=== PATIENT | female | born 1980 | race Caucasian/White ===

== ENCOUNTER 2017-11-11 01:00 | Day surgery (SDC) | payer BC, OTHER ==
[~2017-11-11] VITALS: Ht 160 cm; Wt 106.3 kg
[2017-11-11] MEDS ORDERED: KETOROLAC 30 MG/ML VIAL IVP ONE (01:30)
[2017-11-11] MEDS ORDERED: ONDANSETRON 4 MG/2 ML (SDV) Z0FRAN IVP ONE ×2 (01:30→03:00)
--- NOTE | 2017-11-11 01:30 | ED Abdominal Pain ---
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 emesis x 2 Sepsis Screen: No Definite Risk Source of Information: Patient Exam Limitations: No Limitations History of Present Illness Date Seen by Provider: Nov 11, 2017 Time Seen by Provider: 01:16 Initial Comments Patient presents to ER by private conveyance with a chief complaint of suprapubic abdominal pain radiating to the right lower quadrant abdomen. She's never had a pain like this before this started about 2 hours ago. She was out with some friends at a [place] [employer] and had 4 alcoholic drinks tonight. She does not smoke or use recreational drugs. She had her last menstrual period 2 weeks ago. She describes the pain is really bad cramps. Her last bowel movement was one hour ago normal formed. She has no difficulty urinating. No discharge. She's had no surgeries on her abdomen nor has she had any trauma. She takes Vyvanse for ADHD, tumeric for chronic pain and fibromyalgia, Wellbutrin. She says she has vomited tonight and still has nausea. Allergies and Home Medications Allergies Coded Allergies: Penicillins (Verified Allergy, Unknown, 11/11/17) Patient Home Medication List Home Medication List Reviewed: Yes Review of Systems Constitutional: No chills, No diaphoresis EENTM: No Blurred Vision, No Double Vision Respiratory: Denies Cough, Denies Shortness of Air Cardiovascular: Denies Chest Pain, Denies Palpitations Gastrointestinal: See HPI, Abdominal Pain; Denies Constipated, Denies Diarrhea ; Nausea, Vomiting Genitourinary: Denies Burning, Denies Discharge Musculoskeletal: No back pain, No joint pain Skin: No pruritus, No rash Psychiatric/Neurological: Denies Headache, Denies Numbness, Denies Paresthesia Past Pxqfrql-Sovbjm-Bzxagc Hx Patient Social History Alcohol Use: Occasionally Uses Number of Drinks Today: 4 Alcohol Beverage of Choice: Beer Recreational Drug Use: No Smoking Status: Never a Smoker Recent Foreign Travel: No Contact w/Someone Who Travel: No Recent Infectious Disease Expo: No Past Medical History Surgeries: No Respiratory: No Cardiac: No Neurological: No Genitourinary: No Gastrointestinal: No Musculoskeletal: Yes Fibromyalgia Endocrine: No HEENT: No Cancer: No Psychosocial: Yes ADD/ADHD, Depression Integumentary: No Physical Exam Vital Signs Vital Signs - First Documented 11/11/17 01:11 Temp 96.1 Pulse 78 Resp 26 B/P (MAP) 110/51 (70) Pulse Ox 98 Capillary Refill : Less Than 3 Seconds General Appearance: WD/WN, moderate distress HEENT: PERRL/EOMI, normal ENT inspection, TMs normal, pharynx normal Neck: non-tender, supple, normal inspection Respiratory: chest non-tender, lungs clear, normal breath sounds, no respiratory distress, no accessory muscle use Cardiovascular: normal peripheral pulses, regular rate, rhythm, no edema Peripheral Pulses: 2+ Radial Pulses (R), 2+ Radial Pulses (L) Gastrointestinal: normal bowel sounds, soft; No guarding, No rebound; tenderness (suprapubic and right lower quadrant around McBurney's point. There is no Rovsing's or iliopsoas signs), other (obese) Extremities: normal range of motion, normal capillary refill Neurologic/Psychiatric: alert, oriented x 3, other (tearful, anxious) Skin: normal color, warm/dry Progress/Results/Core Measures Lab Results Laboratory Tests Test 11/11/17 01:15 11/11/17 01:45 Range/Units White Blood Count 18.2 H 4.3-11.0 10^3/uL Red Blood Count 4.24 L 4.35-5.85 10^6/uL Hemoglobin 13.2 11.5-16.0 G/DL Hematocrit 39 35-52 % Mean Corpuscular Volume 91 80-99 FL Mean Corpuscular Hemoglobin 31 25-34 PG Mean Corpuscular Hemoglobin Concent 34 32-36 G/DL Red Cell Distribution Width 11.9 10.0-14.5 % Platelet Count 199 130-400 10^3/uL Mean Platelet Volume 11.2 H 7.4-10.4 FL Neutrophils (%) (Auto) 83 H 42-75 % Lymphocytes (%) (Auto) 8 L 12-44 % Monocytes (%) (Auto) 9 0-12 % Eosinophils (%) (Auto) 1 0-10 % Basophils (%) (Auto) 0 0-10 % Neutrophils # (Auto) 15.1 H 1.8-7.8 X 10^3 Lymphocytes # (Auto) 1.4 1.0-4.0 X 10^3 Monocytes # (Auto) 1.6 H 0.0-1.0 X 10^3 Eosinophils # (Auto) 0.1 0.0-0.3 10^3/uL Basophils # (Auto) 0.0 0.0-0.1 10^3/uL Neutrophils % (Manual) 76 % Lymphocytes % (Manual) 8 % Monocytes % (Manual) 7 % Eosinophils % (Manual) 0 % Basophils % (Manual) 0 % Band Neutrophils 7 % Reactive Lymphocytes 2 % Blood Morphology Comment NORMAL Sodium Level 138 135-145 MMOL/L Potassium Level 3.8 3.6-5.0 MMOL/L Chloride Level 104 98-107 MMOL/L Carbon Dioxide Level 20 L 21-32 MMOL/L Anion Gap 14 5-14 MMOL/L Blood Urea Nitrogen 15 7-18 MG/DL Creatinine 0.76 0.60-1.30 MG/DL Estimat Glomerular Filtration Rate > 60 BUN/Creatinine Ratio 20 Glucose Level 118 H 70-105 MG/DL Calcium Level 9.6 8.5-10.1 MG/DL Magnesium Level 2.3 1.8-2.4 MG/DL Total Bilirubin 0.3 0.1-1.0 MG/DL Aspartate Amino Transf (AST/SGOT) 15 5-34 U/L Alanine Aminotransferase (ALT/SGPT) 24 0-55 U/L Alkaline Phosphatase 59 40-136 U/L C-Reactive Protein High Sensitivity 0.62 H 0.00-0.50 MG/DL Total Protein 7.0 6.4-8.2 GM/DL Albumin 4.3 3.2-4.5 GM/DL Serum Alcohol < 10 <10 MG/DL Urine Color YELLOW Urine Clarity CLEAR Urine pH 6 5-9 Urine Specific [place] 1.025 H 1.016-1.022 Urine Protein 1+ H NEGATIVE Urine Glucose (UA) NEGATIVE NEGATIVE Urine Ketones 4+ H NEGATIVE Urine Nitrite NEGATIVE NEGATIVE Urine Bilirubin NEGATIVE NEGATIVE Urine Urobilinogen NORMAL NORMAL MG/DL Urine Leukocyte Esterase 2+ H NEGATIVE Urine RBC (Auto) 3+ H NEGATIVE Urine RBC RARE /HPF Urine WBC 2-5 /HPF Urine Squamous Epithelial Cells 2-5 /HPF Urine Crystals NONE /LPF Urine Bacteria FEW H /HPF Urine Casts NONE /LPF Urine Mucus SMALL H /LPF Urine Culture Indicated YES Urine Test NEGATIVE NEGATIVE Urine Opiates Screen NEGATIVE NEGATIVE Urine Oxycodone Screen NEGATIVE NEGATIVE Urine Methadone Screen NEGATIVE NEGATIVE Urine Propoxyphene Screen NEGATIVE NEGATIVE Urine Barbiturates Screen NEGATIVE NEGATIVE Ur Tricyclic Antidepressants Screen NEGATIVE NEGATIVE Urine Phencyclidine Screen NEGATIVE NEGATIVE Urine Amphetamines Screen POSITIVE H NEGATIVE Urine Methamphetamines Screen NEGATIVE NEGATIVE Urine Benzodiazepines Screen NEGATIVE NEGATIVE Urine Cocaine Screen NEGATIVE NEGATIVE Urine Cannabinoids Screen NEGATIVE NEGATIVE My Orders Orders - [facility] Alcohol (11/11/17 01:22) Cbc With Automated Diff (11/11/17 01:22) Comprehensive Metabolic Panel (11/11/17 01:22) Hs C Reactive Protein (11/11/17 01:22) Drug Screen Stat (Urine) (11/11/17 01:22) Hcg,Qualitative Urine (11/11/17 01:22) Magnesium (11/11/17 01:22) Ua Culture If Indicated (11/11/17 01:22) Saline Lock/Iv-Start (11/11/17 01:22) Ketorolac Injection (Toradol Injection) (11/11/17 01:30) Ondansetron Injection (Zofran Injectio (11/11/17 01:30) Ct Abd/Pelv W (Appendicitis) (11/11/17 01:31) Manual Differential (11/11/17 01:15) Iohexol Injection (Omnipaque 350 Mg/Ml 1 (11/11/17 02:00) Ns (Ivpb) (Sodium Chloride 0.9%) (11/11/17 02:00) Urine Culture (11/11/17 01:45) Medications Given in ED Current Medications Medications Dose Ordered Sig/Deep Route Start Time Stop Time Status Last Admin Dose Admin Iohexol 100 ml ONCE ONCE IV 11/11/17 02:00 11/11/17 02:01 DC 11/11/17 01:58 100 ML Ketorolac Tromethamine 15 mg ONCE ONCE IVP 11/11/17 01:30 11/11/17 01:31 DC 11/11/17 01:36 15 MG Ondansetron HCl 4 mg ONCE ONCE IVP 11/11/17 01:30 11/11/17 01:31 DC 11/11/17 01:35 4 MG Sodium Chloride 250 ml ONCE ONCE IV 11/11/17 02:00 11/11/17 02:01 DC 11/11/17 01:59 80 ML Vital Signs/I&O 11/11/17 01:11 Temp 96.1 Pulse 78 Resp 26 B/P (MAP) 110/51 (70) Pulse Ox 98 Blood Pressure Mean: 70 Progress Note : Time: 01:29 Progress Note Pain and nausea medicine. We'll obtain urine and blood. Possibilities include mittelschmerz, ovarian or tubal pain, appendix. Her pain does not really seem to be lateralizing but more midline. She is just as tender though over McBurney' s point. We'll plan on doing a CT abdomen pelvis with contrast given her distress. Diagonstic Imaging: CT (with contrast) Plain Films/CT/US/NM/MRI: abdomen, pelvis Comments Appendix is enlarged 9 mm with surrounding inflammatory change. Findings consistent with acute appendicitis. No free air. No fluid collections. Reviewed: Reviewed by Me Departure Communication (Admissions) Time/Spoke to Admitting Phy: 02:46 hollie: General surgery. Discussed case lab imaging's and he recommends putting her in an observation stay and he would take her to the operating room this morning. Impression Primary Impression: Appendicitis Qualified Codes: K35.80 - Unspecified acute appendicitis Disposition: ADMITTED INPATIENT Condition: Stable Admissions Decision to Admit Reason: Admit from ER (General) Decision to Admit/Date: Nov 11, 2017 Time/Decision to Admit Time: 02:47 Copy Copies To 1: STAN VIVEROS MD, TITUS J Nov 11, 2017 01:30
[2017-11-11 01:31] LABS: BASOPHILS % (AUTO) 0 % (0-10); EOSINOPHILS # (AUTO) 0.1 10^3/uL (0.0-0.3); EOSINOPHILS % (AUTO) 1 % (0-10); HEMATOCRIT 39 % (35-52); HEMOGLOBIN 13.2 G/DL (11.5-16.0); LYMPHOCYTES # (AUTO) 1.4 X 10^3 (1.0-4.0); LYMPHOCYTES % (AUTO) 8 % (12-44); MEAN CORPUSCULAR HEMOGLOBIN 31 PG (25-34); MEAN CORPUSCULAR HGB CONC 34 G/DL (32-36); MEAN CORPUSCULAR VOLUME 91 FL (80-99); MEAN PLATELET VOLUME 11.2 FL (7.4-10.4); MONOCYTES # (AUTO) 1.6 X 10^3 (0.0-1.0); MONOCYTES % (AUTO) 9 % (0-12); NEUTROPHILS # (AUTO) 15.1 X 10^3 (1.8-7.8); NEUTROPHILS % (AUTO) 83 % (42-75); PLATELET COUNT 199 10^3/uL (130-400); RED BLOOD COUNT 4.24 10^6/uL (4.35-5.85); RED CELL DISTRIBUTION WIDTH 11.9 % (10.0-14.5); WHITE BLOOD COUNT 18.2 10^3/uL (4.3-11.0)
[2017-11-11] MEDS ORDERED: BUPR300T51 PO (01:43)
[2017-11-11] MEDS ORDERED: LISD30CA3 PO (01:43)
[2017-11-11] MEDS ORDERED: RIZA10TA37 PO (01:43)
[2017-11-11] MEDS ORDERED: ZOLP5TAB7 PO (01:43)
[2017-11-11] MEDS ORDERED: MELO7.5T46 PO (01:43)
[2017-11-11 01:46] LABS: ALANINE AMINOTRANSFERASE 24 U/L (0-55); ALBUMIN 4.3 GM/DL (3.2-4.5); ALKALINE PHOSPHATASE 59 U/L (40-136); BILIRUBIN,TOTAL 0.3 MG/DL (0.1-1.0); BUN/CREATININE RATIO 20; CALCIUM 9.6 MG/DL (8.5-10.1); CARBON DIOXIDE 20 MMOL/L (21-32); CHLORIDE 104 MMOL/L (98-107); CREATININE SERUM 0.76 MG/DL (0.60-1.30); GFR ESTIMATED > 60; GLUCOSE 118 MG/DL (70-105); MAGNESIUM 2.3 MG/DL (1.8-2.4); POTASSIUM 3.8 MMOL/L (3.6-5.0); SODIUM 138 MMOL/L (135-145)
[2017-11-11 01:47] LABS: BAND NEUTROPHILS 7 %; BASOPHILS % (MANUAL) 0 %; EOSINOPHILS % (MANUAL) 0 %; LYMPHOCYTES % (MANUAL) 8 %; MONOCYTES % (MANUAL) 7 %; NEUTROPHILS % (MANUAL) 76 %; RBC MORPH NORMAL; REACTIVE LYMPHOCYTES 2 %
[2017-11-11 01:51] LABS: BILIRUBIN,URINE NEGATIVE (NEGATIVE); CLARITY,URINE CLEAR; COLOR,URINE YELLOW; GLUCOSE, URINE (UA) NEGATIVE (NEGATIVE); KETONES,URINE 4+ (NEGATIVE); LEUKOCYTE ESTERASE ,URINE 2+ (NEGATIVE); NITRITE,URINE NEGATIVE (NEGATIVE); PH,URINE 6 (5-9); PROTEIN,URINE 1+ (NEGATIVE); UROBILINOGEN,URINE NORMAL (NORMAL)
[2017-11-11 01:58] LABS: BACTERIA,URINE FEW /HPF; HCG,QUALITATIVE URINE NEGATIVE (NEGATIVE); RBC,URINE RARE /HPF
[2017-11-11] MEDS ORDERED: NS 250 ML (IVPB) BAG IV ONE (02:00)
[2017-11-11] MEDS ORDERED: IOHEXOL 350 MG/ML 100 ML (OMNIPAQUE 350) VIAL IV ONE (02:00)
[2017-11-11 02:01] LABS: AMPHETAMINE SCREEN, URINE POSITIVE (NEGATIVE); BARBITURATE SCREEN URINE NEGATIVE (NEGATIVE); BENZODIAZEPINES SCREEN URINE NEGATIVE (NEGATIVE); CANNABINOID SCREEN, URINE NEGATIVE (NEGATIVE); COCAINE SCREEN URINE NEGATIVE (NEGATIVE); METHAMPHETAMINE SCREEN URINE S NEGATIVE (NEGATIVE); OPIATE SCREEN URINE NEGATIVE (NEGATIVE)
[2017-11-11 02:02] LABS: METHADONE STAT NEGATIVE (NEGATIVE); OXYCODONE STAT NEGATIVE (NEGATIVE); PROPOXYPHENE STAT NEGATIVE (NEGATIVE); TRICYCLIC ANTIDEPRESSANTS SCRE NEGATIVE (NEGATIVE)
[2017-11-11] MEDS ORDERED: cefTRIAXone INJECTION 2,000 MG in NS (IVPB) 100 ML IV ONE (03:00)
[2017-11-11] MEDS ORDERED: LACTATED RINGERS 1,000 ML IV SCH (03:15)
[2017-11-11 03:35] VITALS: BP 119/56
[2017-11-11] MEDS ORDERED: fentaNYL INJECTION 100 MCG/2 ML AMP ONE ×4 (04:25→07:17)
[2017-11-11] MEDS ORDERED: 1/2 NS W/KCL 20 MEQ/L 1,000 ML IV ONE (05:02)
[2017-11-11] MEDS ORDERED: ONDANSETRON 4 MG/2 ML (SDV) Z0FRAN IV PRN ×2 (05:30→08:00)
[2017-11-11] MEDS ORDERED: 1/2 NS W/KCL 20 MEQ/L 1,000 ML IV SCH (05:30)
[2017-11-11] MEDS ORDERED: fentaNYL INJECTION 100 MCG/2 ML AMP IVP ONE (05:30)
[2017-11-11] MEDS ORDERED: fentaNYL INJECTION 100 MCG/2 ML AMP IV PRN ×3 (05:30→09:30)
[2017-11-11] MEDS ORDERED: metroNIDAZOLE 500 MG/100 ML IVPB (PRE-MIX) IV SCH (06:00)
--- NOTE | 2017-11-11 06:15 | History & Physicial ---
History of Present Illness History of Present Illness Reason for visit/HPI RLQ pain and nausea for [address] confirm appendicitis Date of Admission Nov 11, 2017 at 02:52 Date Seen by Provider: Nov 11, 2017 Time Seen by Provider: 06:12 I consulted on this patient on 11/11/17 06:11 Attending Physician Stan Viveros MD Admitting Physician No,Local Physician Consult Allergies and Home Medications Allergies Coded Allergies: Penicillins (Verified Allergy, Unknown, 11/11/17) Patient Home Medication List Home Medication List Reviewed: Yes Past Zvntfwh-Gbkoiw-Beudmq Hx Patient Social History Marrital Status: single Employed/Student: employed Alcohol Use: Occasionally Uses Number of Drinks Today: 4 Alcohol Beverage of Choice: Beer Recreational Drug Use: No Smoking Status: Former Smoker Former Smoker, Quit: Jul 16, 2000 Type Used: Cigarettes Physical Abuse Screen: No Sexual Abuse: No Recent Foreign Travel: No Contact w/other who traveled: No Recent Hopitalizations: No Recent Infectious Disease Expo: No Immunizations Up To Date Pediatric: No Seasonal Allergies Seasonal Allergies: No Surgeries No Respiratory No Cardiovascular No Neurological No Genitourinary No Gastrointestinal No Musculoskeletal Yes Fibromyalgia, Chronic Back Pain Endocrine History of Endocrine Disorders: No HEENT History of HEENT Disorders: No Cancer No Psychosocial History of Psychiatric Problem: Yes Behavioral Health Disorders: ADD/ADHD, Depression Integumentary History of Skin or Integumenta: No Blood Transfusions History of Blood Disorders: No Adverse Reaction to a Blood Tr: No Family Medical History Family Hx: Patient reports no known family medical history. Constitutional: malaise EENTM: no symptoms reported Respiratory: no symptoms reported Cardiovascular: no symptoms reported Gastrointestinal: see HPI Genitourinary: no symptoms reported Musculoskeletal: no symptoms reported, muscle pain Skin: no symptoms reported Psychiatric/Neurological: No Symptoms Reported Physical Exam Vital Signs Vital Signs - First Documented 11/11/17 01:11 Temp 96.1 Pulse 78 Resp 26 B/P (MAP) 110/51 (70) Pulse Ox 98 Capillary Refill : Less Than 3 Seconds General Appearance: Mild Distress Neck: Normal Inspection Respiratory: Lungs Clear Cardiovascular: Regular Rate, Rhythm Gastrointestinal: Tenderness Extremity: Normal Inspection Neurologic/Psychiatric: Alert, Oriented x3 Skin: Warm/Dry Comments Tender RLQ Assessment/Plan Assessment and Plan Lady with acute appendicitis, for lap.appendectomy. Discussed in detail. Admission Diagnosis Admission Status: Observation Clinical Quality Measures DVT/VTE Risk/Contraindication: Risk Factor Score Per Nursin RFS Level Per Nursing on Admit: 2=Moderate STAN VIVEROS MD Nov 11, 2017 06:15
--- NOTE | 2017-11-11 06:16 | Progress Note-Pre Operative ---
Pre-Operative Progress Note H&P Reviewed The H&P was reviewed, patient examined and no changes noted. Date Seen by Provider: Nov 11, 2017 Time Seen by Provider: 06:10 Date H&P Reviewed: Nov 11, 2017 Time H&P Reviewed: 06:15 Pre-Operative Diagnosis: Acute appendicitis STAN VIVEROS MD Nov 11, 2017 06:16
[2017-11-11] MEDS ORDERED: proPOfol 200 MG/20 ML (DIPRIVAN) VIAL IV ONE (06:27)
[2017-11-11] MEDS ORDERED: SUCCINYLCHOLINE INJ 100 MG/5 ML SYR ONE (06:27)
[2017-11-11] MEDS ORDERED: ONDANSETRON 4 MG/2 ML (SDV) Z0FRAN ONE (06:27)
[2017-11-11] MEDS ORDERED: ROCURONIUM 10 MG/ML 5 ML SYRINGE IV ONE (06:27)
[2017-11-11] MEDS ORDERED: SEVOFLURANE (ULTANE) 15 ML INHAL SOLN ONE (06:27)
[2017-11-11] MEDS ORDERED: MIDAZOLAM 2 MG/2 ML (VERSED) VIAL ONE (06:27)
[2017-11-11] MEDS ORDERED: LIDOCAINE PF 2% 5 ML (XYLOCAINE) VIAL ONE (06:27)
[2017-11-11] MEDS ORDERED: DEXAMETHASONE 10 MG/ML (DECADRON) 1 ML VIAL ONE (06:27)
[2017-11-11] MEDS ORDERED: BUP/EPI 0.5% 1:200,000 (SENSORCAINE) 30 ML VIAL ONE (06:36)
[2017-11-11] MEDS ORDERED: ceFAZolin 1,000 MG (ANCEF) VIAL ONE (07:12)
--- NOTE | 2017-11-11 07:13 | Diagnostic Imaging Report ---
PROCEDURE: CT abdomen and pelvis with contrast, rule out appendicitis. TECHNIQUE: Multiple contiguous axial images were obtained through the abdomen and pelvis after the administration of intravenous contrast. INDICATION: Abdominal pain. COMPARISON: There are no prior studies available for comparison. FINDINGS: The appendix is abnormally thickened measuring 14 mm (normal 8 mm or less). In addition there does appear to be an appendicolith present as well as distortion of the periappendiceal fat. The combination of these findings does suggest acute appendicitis. There is no acute abnormality identified otherwise. There is no pelvic mass or free fluid collection evident. The uterus and ovaries are unremarkable as is the urinary bladder. The liver, spleen, pancreas, adrenals, gallbladder, kidneys, aorta and inferior vena cava show no sign of an acute abnormality. The stomach is not well-distended and consequently difficult to assess. The lung bases are clear. The bone windows show no sign of a fracture or destructive lesion. IMPRESSION: 1. The findings would be consistent with acute appendicitis. Clinical followup is recommended. 2. There is no acute abnormality of the abdomen or pelvis noted otherwise. 3. These results were conveyed to the ER by our [employer] service at 0238 on 11/11/2017. Critical finding Dictated by: Dictated on workstation # [id number]
[2017-11-11] MEDS ORDERED: LACTATED RINGERS 1,000 ML IV PRN (07:26)
[2017-11-11] MEDS ORDERED: MEPERIDINE (DEMEROL) INJ 50 MG/ML IVP PRN (07:30)
[2017-11-11] MEDS ORDERED: ceFAZolin 2 GM/50 ML (ANCEF) Premixed IV ONE ×2 (07:30)
[2017-11-11] MEDS ORDERED: ONDANSETRON 4 MG/2 ML (SDV) Z0FRAN IVP PRN (07:30)
[2017-11-11] MEDS ORDERED: fentaNYL INJECTION 100 MCG/2 ML AMP IVP PRN (07:30)
[2017-11-11] MEDS ORDERED: NEOSTIGMINE 1 MG/ML 5 ML SYRINGE ONE (07:31)
[2017-11-11] MEDS ORDERED: GLYCOPYRROLATE 0.2 MG/ML (ROBINUL) 2 ML VIAL ONE (07:31)
--- NOTE | 2017-11-11 07:56 | Operative Report ---
Operative Report Date of Procedure/Surgery Nov 11, 2017 Surgeon (s) STAN VIVEROS MD Biometrics Instructor (s): N/A Post-Operative Diagnosis Acute retrocecal appendicitis Procedure Performed Laparoscopic appendectomy Description of Procedure Anesthesia Type: General Estimated blood loss (mL): Minimal Specimen(s) collected/removed Appendix Description of the Procedure Indication for the procedure: This lady presented with clinical and radiologic features of acute appendicitis. She was offered prompt laparoscopic appendectomy. Informed consent was obtained after reviewing the operative details and complications of wound infection and intra-abdominal abscess. Description of procedure: She was placed supine on the operative table and general anesthesia induced. 2 g of Ancef and 500 mg of Flagyl were administered intravenously as prophylaxis against wound infection. Sequential compression devices were placed around her legs, to minimize the risk of venous thrombosis. Abdomen was prepared and draped in the usual sterile manner. A supraumbilical incision was made and the linea alba incised vertically. A Calvillo cannula was placed and carbon dioxide insufflated, to an intra-abdominal pressure of 15 mmHg. Anatomy was visualized using the 30 laparoscope. There was no free fluid in the appendix was initially obscured. Under direct view, I placed a 5 mm trocar over the right upper quadrant, followed by a 12 mm trocar over the left lower quadrant of the abdomen. She was then turned into steep Trendelenburg position, with the right side tilted up. Ileal-cecal junction was mobilized using the Harmonic scalpel, delineating the base of the appendix first. It was transected using an Endo HOA vascular stapler. This followed by control of the mesoappendix using the Harmonic scalpel, leading to a long retrocecal appendix. Appendix was then placed in an Endo Catch bag, to be removed via the supraumbilical trocar site. Right lower quadrant was irrigated with saline and once the Endo Catch bag was removed, the fascia over the supraumbilical incision was closed using #1 Vicryl. Subcutaneous tissue was approximated with 3-0 Vicryl and skin using a 0 Vicryl, in a subcuticular fashion. 0.5 percent Marcaine with epinephrine was infiltrated along the incisions, both pre-emptively and at the conclusion of the operation She tolerated the procedure well, was intubated in the operating room and taken to the recovery room in a stable condition. Findings of the Procedure See op report Allergies and Home Medications Allergies Coded Allergies: Penicillins (Verified Allergy, Unknown, 11/11/17) Patient Home Medication List Home Medication List Reviewed: Yes STAN VIVEROS MD Nov 11, 2017 7:56 am
[2017-11-11] MEDS ORDERED: HYDROcodone/APAP 5 MG/325 MG (LORTAB) TAB PO PRN (08:00)
[2017-11-11] MEDS ORDERED: ACHD5005 PO (08:05)
--- NOTE | 2017-11-11 08:07 | Discharge Inst-Simple/Standard ---
Discharge Inst-Standard Discharge Medications New, Converted or Re-Newed RX: RX on Chart Patient Instructions/Follow Up Plan of Care/Instructions/FU: Band-Aids off in 48 hours. Incentive spirometry for a week. Follow up with me in about a week Activity as Tolerated: Yes Discharge Diet: No Restrictions STAN VIVEROS MD Nov 11, 2017 8:07 am
[2017-11-11] MEDS: morphine INJ 10 MG/ML 1ML (SYR OR VIAL) IVP PRN ×2 (08:20→08:25)
[2017-11-11 09:00] VITALS: BP 98/54
[2017-11-11] MEDS: LACTATED RINGERS 1,000 ML IV SCH ×2 (10:34→15:50)
[2017-11-11 12:00] VITALS: BP 132/70
[2017-11-11] MEDS: ceFAZolin INJECTION 1,000 MG in NS (IVPB) 100 ML IV SCH ×2 (12:58→20:25)
[2017-11-11] MEDS: metroNIDAZOLE 500MG/100ML IVPB 100 ML IV SCH ×2 (12:59→21:58)
[2017-11-11 15:20] VITALS: BP 114/68
[2017-11-11 19:30] VITALS: BP 118/66
[2017-11-11] MEDS: KETOROLAC 15 MG/ML VIAL IV SCH (21:58)
[2017-11-11 23:53] VITALS: BP 115/68
[2017-11-12 04:06] VITALS: BP 107/57
[2017-11-12] MEDS: ceFAZolin INJECTION 1,000 MG in NS (IVPB) 100 ML IV SCH (04:11)
[2017-11-12] MEDS: KETOROLAC 15 MG/ML VIAL IV SCH ×2 (05:10→13:14)
[2017-11-12] MEDS: metroNIDAZOLE 500MG/100ML IVPB 100 ML IV SCH (05:10)
[2017-11-12 07:58] VITALS: BP 95/54
[2017-11-12 12:00] VITALS: BP 138/78
--- NOTE | 2017-11-12 14:47 | Progress Note-Standard ---
Standard Progress Note Progress Notes/Assess & Plan Date Seen by Provider: Nov 12, 2017 Time Seen by Provider: 10:10 Progress/Assessment & Plan Reasonable postoperative recovery. Pain control adequate. Tolerating diet. Could be discharged today Final Diagnosis Acute appendicitis STAN VIVEROS MD Nov 12, 2017 14:47
[2017-11-12 15:58] VITALS: BP 104/63
== END 2017-11-12 16:30 | disposition home or self-care (01) ==
LOC: ER 01:03 → 4TH 02:52 → SDC 02:52 → UNDOADMOB 02:52 → SDC 11-12 16:30 → UNDODISOB 11-12 16:30
PROVIDERS: ATTEND Surgery
DX: K35.80 Unspecified acute appendicitis (principal); M79.7 Fibromyalgia; F90.9 Attention-deficit hyperactivity disorder, unspecified type; F32.9 Major depressive disorder, single episode, unspecified; Z79.899 Other long term (current) drug therapy; Z87.891 Personal history of nicotine dependence
CPT/HCPCS: 36415; 74177; 80053; 80306; 80320; 81000; 83735; 84703; 85007; 85027; 86141; 87081; 87088; 88304; 94664; 96365; 96375; 96376